=== PATIENT | male | born 1965 | race Caucasian/White ===

== ENCOUNTER → 2017-07-06 | Outpatient (CLI) | payer OTHER ==
--- NOTE | 2017-07-06 16:35 | Diagnostic Imaging Report ---
TECHNIQUE: Magnetic resonance imaging of the LEFT KNEE was performed WITHOUT injected contrast. HISTORY: Left knee pain COMPARISON: None available. FINDINGS: LIGAMENTS AND TENDONS: ACL: Intact PCL: Intact Collateral ligaments: Intact Iliotibial band: Unremarkable Popliteal tendon: Intact Extensor mechanism: Intact JOINT: Menisci: Medial: Degenerative signal with undersurface fraying without discrete tear. Lateral: Intact Articular Cartilage: Medial Compartment: Partial-thickness cartilage loss Lateral Compartment: Partial thickness cartilage loss Patellofemoral Compartment: Partial thickness cartilage loss Joint Fluid: The amount of fluid within the joint is within physiologic limits. BONE: No focal or infiltrative bone marrow replacing abnormality. No acute fracture. SOFT TISSUES: Otherwise, unremarkable. IMPRESSION: Tricompartment mild partial thickness cartilage loss. Mild medial meniscus degeneration without tear. Signed by: Dr. Yonathan Crockett M.D. on 07/06/2017 4:32 PM
== END ==
LOC: MRI 13:10
PROVIDERS: ATTEND Family Medicine
DX: S86.912A Strain of unspecified muscle(s) and tendon(s) at lower leg level, left leg, initial encounter (principal)

== ENCOUNTER → 2021-08-05 | Outpatient (CLI) | payer OTHER | LOC: MRI 09:05 | PROVIDERS: ATTEND Family Medicine | DX: S93.491D Sprain of other ligament of right ankle, subsequent encounter (principal) ==